=== PATIENT | female | born 1970 | race Caucasian/White ===

== ENCOUNTER 2016-05-29 21:59 | Emergency (ER) | payer OTHER ==
[~2016-05-29 21:59] MED LIST: ATORVASTATIN CA20 MG PO; METOPROLOL TART50 MG PO; OMEPRAZOLE20 M1 PO; SYMBICORT1 AE1 IN; WELLBUTRIN SR100 MG PO
--- NOTE | 2016-05-30 | ED ORDER SUMMARY ---
..... Patient: ROSALVA SANTIAGO OrderSheet [facility] VisitID: [id number] [address] [place] [address] 45y, F Registration Date/Time: 05/29/2016 ORDER SHEET Weight: 117.9 kg (stated) Allergies: Flagyl, Sulfa Antibiotics GENERAL ORDERS: Forearm Right Urgent (22:22 05/29/2016 DDean R.N. per protocol) (Ack 22:25 CHagerty ER Autocad Draftsman) (22:30 HBivens A.R.N.P.) (Cancelled: Other22:30 HBivens A.R.N.P.) Elbow 3 or 4V Right Urgent (22:30 05/29/2016 HBivens A.R.N.P.) (22:40 CHagerty ER Autocad Draftsman) MEDICATION ORDERS: IV FLUIDS: ORDER SHEET NOTES: [Electronically signed by Adam Salgado R.N. (00:12 05/30/2016)] [Electronically signed by Nazia Kumar.R.N.P. (13:41 06/07/2016)] [Electronically locked/signed by Adam Salgado R.N. (00:12 05/30/2016)]
--- NOTE | 2016-05-30 | ED ORDER SUMMARY ---
..... Patient: ROSALVA SANTIAGO OrderSheet [facility] VisitID: [id number] [address] [place] [address] 45y, F Registration Date/Time: 05/29/2016 ORDER SHEET Weight: 117.9 kg (stated) Allergies: Flagyl, Sulfa Antibiotics GENERAL ORDERS: Forearm Right Urgent (22:22 05/29/2016 DDean R.N. per protocol) (Ack 22:25 CHagerty ER Board Attendant) (22:30 HBivens A.R.N.P.) (Cancelled: Other22:30 HBivens A.R.N.P.) Elbow 3 or 4V Right Urgent (22:30 05/29/2016 HBivens A.R.N.P.) (22:40 CHagerty ER Board Attendant) MEDICATION ORDERS: IV FLUIDS: ORDER SHEET NOTES: [Electronically signed by Adam Salgado R.N. (00:12 05/30/2016)] [Electronically signed by Nazia Kumar.R.N.P. (13:41 06/07/2016)] [Electronically locked/signed by Adam Salgado R.N. (00:12 05/30/2016)]
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
--- NOTE | 2016-05-30 00:16 | DIAGNOSTIC IMAGING REPORT ---
PROCEDURE: XR ELBOW 3 OR 4 VIEWS - RIGHT INDICATION: TRAUMA/INJURY TECHNIQUE: Four views. COMPARISON: None. FINDINGS: There are mild arthritic changes of the right ulnar humeral joint. The rest of the osseous structures and joint spaces are normal. No evidence of an effusion. IMPRESSION: 1. Mild arthritic changes. 2. Otherwise negative right elbow.
--- NOTE | 2016-06-07 13:41 | ED MED RECONCILIATION SUMMARY ---
Patient: ROSALVA SANTIAGO Medication Reconciliation Report [facility] VisitID: [id number] [address] [place] [address] 45y, F Registration Date/Time: 05/29/2016 Weight: 117.9 kg Height/Length: 63 in. BMI: 46.1 ALLERGIES: Flagyl, Sulfa Antibiotics The patient's Home Medications are listed below: THE FOLLOWING MEDICATIONS NEED TO BE RECONCILED: Atorvastatin Calcium Oral 40 mg, daily Hydrochlorothiazide Oral 25 mg, daily Omeprazole Oral 20 mg, 2x a day Tylenol PM Extra Strength Oral, qhs The source(s) of the original Home Medication information: Not obtained. The following Medications were given to the patient in the Emergency Department: None. The following Medications were prescribed to the patient: Naproxen 500 mg tablets: take 1 orally every 12 hours as needed for pain. Dispense twenty (20). No refills. -- Nazia Kumar A.R.N.P.
--- NOTE | 2016-06-07 13:41 | ED DISCHARGE INSTRUCTIONS ---
Patient: ROSALVA SANTIAGO General Instructions [facility] VisitID: [id number] [place] [address] 45y, F Registration Date/Time: 05/29/2016 Single contusion to the right elbow.No hematoma or skin abrasion. INSTRUCTIONS Warnings: GENERAL WARNINGS: Return or contact your physician immediately if your condition worsens or changes unexpectedly, if not improving as expected, or if other problems arise. Specifically return if problem worsens. Prescription Medications: Naproxen 500 mg tablets: take 1 orally every 12 hours as needed for pain. Dispense twenty (20). No refills. Follow-up: Follow up with your doctor in about one week as needed. Call for an appointment. Summary of care provided to patient. Understanding of the discharge instructions verbalized by patient. ADDITIONAL INFORMATION Contusion,Soft Tissue You have a CONTUSION, which is a bruise with swelling and some bleeding under the skin. There are no broken bones. This injury takes a few days to a few weeks to heal. Home Care: 1) Keep the injured part elevated to reduce pain and swelling. This is especially important during the first 48 hours. 2) Make an ice pack (ice cubes in a plastic bag, wrapped in a towel) and apply for 20 minutes every 1-2 hours the first day. Continue this 3-4 times a day until the pain and swelling goes away. 3) You may use acetaminophen (Tylenol) or ibuprofen (Motrin, Advil) to control pain, unless another pain medicine was prescribed. [ NOTE : If you have chronic liver or kidney disease or ever had a stomach ulcer or GI bleeding, talk with your doctor before using these medicines.] Follow Up with your doctor or this facility if you are not improving within the next THREE days. [NOTE: If X-rays were taken, they will be reviewed by a radiologist. You will be notified of any new findings that may affect your care.] Get Prompt Medical Attention if any of the following occur: -- Pain or swelling increases -- Injured arm or leg becomes cold, blue, numb or tingly -- Redness, warmth or drainage from the skin Contusion, Elbow A contusion of your elbow causes local pain, swelling and sometimes bruising. There are no broken bones. This injury takes a few days to a few weeks to heal. A sling may be provided for comfort and arm support Home Care : Keep your arm elevated to reduce pain and swelling.This is most important during the first 48 hours after injury. Apply an ice pack (ice cubes in a plastic bag, wrapped in a towel) over the injured area for 20 minutes every 1-2 hours the first day. You should continue with ice packs 3-4 times a day for the next two days. Continue the use of ice packs for relief of pain and swelling as needed. You may use acetaminophen (Tylenol) or ibuprofen (Motrin, Advil) to control pain, unless another pain medicine was prescribed. [NOTE: If you have chronic liver or kidney disease or ever had a stomach ulcer or GI bleeding, talk with your doctor before using these medicines.] If a sling was provided, you may remove it to shower or bathe. Do not wear it for more than one week or it may cause joint stiffness. Follow Up with your doctor or as advised by our staff if you are not starting to improve within the nextthree days. Get Prompt Medical Attention if any of the following occur: Pain or swelling increases Redness, warmth or drainage Hand or fingers becomes cold, blue, numb or tingly Naproxen Sodium Oral tablet What is this medicine? NAPROXEN (na PROX en) is a non-steroidal anti-inflammatory drug (NSAID). It is used to reduce swelling and to treat pain. This medicine may be used for dental pain, headache, or painful monthly periods. It is also used for painful joint and muscular problems such as arthritis, tendinitis, bursitis, and gout. How should I use this medicine? Take this medicine by mouth with a glass of water. Follow the directions on the prescription label. Take it with food if your stomach gets upset. Try to not lie down for at least 10 minutes after you take it. Take your medicine at regular intervals. Do not take your medicine more often than directed. Long-term, continuous use may increase the risk of heart attack or stroke. A special MedGuide will be given to you by the pharmacist with each prescription and refill. Be sure to read this information carefully each time. Talk to your votator machine operator regarding the use of this medicine in children. Special care may be needed. What side effects may I notice from receiving this medicine? Side effects that you should report to your doctor or health child care coordinator as soon as possible: black or bloody stools, blood in the urine or vomit blurred vision chest pain difficulty breathing or wheezing nausea or vomiting severe stomach pain skin rash, skin redness, blistering or peeling skin, hives, or itching slurred speech or weakness on one side of the body swelling of eyelids, throat, lips unexplained weight gain or swelling unusually weak or tired yellowing of eyes or skin Side effects that usually do not require medical attention (report to your doctor or health child care coordinator if they continue or are bothersome): constipation headache heartburn What may interact with this medicine? alcohol aspirin cidofovir diuretics lithium methotrexate other drugs for inflammation like ketorolac or prednisone pemetrexed probenecid warfarin What if I miss a dose? If you miss a dose, take it as soon as you can. If it is almost time for your next dose, take only that dose. Do not take double or extra doses. Where should I keep my medicine? Keep out of the reach of children. Store at room temperature between 15 and 30 degrees C (59 and 86 degrees F). Keep container tightly closed. Throw away any unused medicine after the expiration date. What should I tell my health care provider before I take this medicine? They need to know if you have any of these conditions: asthma cigarette smoker drink more than 3 alcohol containing drinks a day heart disease or circulation problems such as heart failure or leg edema (fluid retention) high blood pressure kidney disease liver disease stomach bleeding or ulcers an unusual or allergic reaction to naproxen, aspirin, other NSAIDs, other medicines, foods, dyes, or preservatives or trying to get breast-feeding What should I watch for while using this medicine? Tell your doctor or health child care coordinator if your pain does not get better. Talk to your doctor before taking another medicine for pain. Do not treat yourself. This medicine does not prevent heart attack or stroke. In fact, this medicine may increase the chance of a heart attack or stroke. The chance may increase with longer use of this medicine and in people who have heart disease. If you take aspirin to prevent heart attack or stroke, talk with your doctor or health child care coordinator. Do not take other medicines that contain aspirin, ibuprofen, or naproxen with this medicine. Side effects such as stomach upset, nausea, or ulcers may be more likely to occur. Many medicines available without a prescription should not be taken with this medicine. This medicine can cause ulcers and bleeding in the stomach and intestines at any time during treatment. Do not smoke cigarettes or drink alcohol. These increase irritation to your stomach and can make it more susceptible to damage from this medicine. Ulcers and bleeding can happen without warning symptoms and can cause . You may get drowsy or dizzy. Do not drive, use machinery, or do anything that needs mental alertness until you know how this medicine affects you. Do not stand or sit up quickly, especially if you are an older patient. This reduces the risk of dizzy or fainting spells. This medicine can cause you to bleed more easily. Try to avoid damage to your teeth and gums when you brush or floss your teeth. You have been given the following additional information: Contusion, Soft Tissue Contusion, Elbow Naproxen Sodium Oral tablet (Electronically signed by Nazia Kumar A.R.N.P. 06/07/2016 13:41)
--- NOTE | 2016-06-07 13:41 | ED MAR SUMMARY ---
..... Medication Administration Record [facility] [address] [place], [place] [id number] Patient: ROSALVA SANTIAGO Visit ID: [id number] 45y, F Weight: 117.9 kg Height/Length: 63 in BMI: 46.1 ALLERGIES: Flagyl, Sulfa Antibiotics
--- NOTE | 2016-06-07 13:41 | ED MAR SUMMARY ---
..... Medication Administration Record [facility] [address] [place], [place] [id number] Patient: ROSALVA SANTIAGO Visit ID: [id number] 45y, F Weight: 117.9 kg Height/Length: 63 in BMI: 46.1 ALLERGIES: Flagyl, Sulfa Antibiotics
--- NOTE | 2016-06-07 13:41 | ED MED RECONCILIATION SUMMARY ---
Patient: ROSALVA SANTIAGO Medication Reconciliation Report [facility] VisitID: [id number] [address] [place] [address] 45y, F Registration Date/Time: 05/29/2016 Weight: 117.9 kg Height/Length: 63 in. BMI: 46.1 ALLERGIES: Flagyl, Sulfa Antibiotics The patient's Home Medications are listed below: THE FOLLOWING MEDICATIONS NEED TO BE RECONCILED: Atorvastatin Calcium Oral 40 mg, daily Hydrochlorothiazide Oral 25 mg, daily Omeprazole Oral 20 mg, 2x a day Tylenol PM Extra Strength Oral, qhs The source(s) of the original Home Medication information: Not obtained. The following Medications were given to the patient in the Emergency Department: None. The following Medications were prescribed to the patient: Naproxen 500 mg tablets: take 1 orally every 12 hours as needed for pain. Dispense twenty (20). No refills. -- Nazia Kumar A.R.N.P.
== END 2016-05-30 00:06 | disposition home or self-care (01) ==
LOC: ED SRH 21:59
DX: S50.01XA Contusion of right elbow, initial encounter (principal); W20.8XXA Other cause of strike by thrown, projected or falling object, initial encounter; Y93.89 Activity, other specified; Y92.009 Unspecified place in unspecified non-institutional (private) residence as the place of occurrence of the external cause; Y99.9 Unspecified external cause status; I10 Essential (primary) hypertension; J44.9 Chronic obstructive pulmonary disease, unspecified; K21.9 Gastro-esophageal reflux disease without esophagitis; F17.210 Nicotine dependence, cigarettes, uncomplicated

== ENCOUNTER 2016-07-26 21:10 | Emergency (ER) | payer OTHER ==
--- NOTE | 2016-07-26 22:39 | ED CLINICAL REPORT ---
Clinical Report - Physicians/Mid Levels [facility] [address] [place] [address] 07/26/2016 21:11 Patient: ROSALVA SANTIAGO Time Seen: 21:21; initial patient contact, initial documentation, patient care assumed. Arrived- By private vehicle. Historian- patient. HISTORY OF PRESENT ILLNESS Chief Complaint: VAGINAL DISCHARGE. This started about 4 days ago and still present. The symptoms are described as moderate. Modifying factors. Not worsened by anything. Not relieved by anything. The patient has had vaginal pain and vaginal itching. She has had a moderate amount of white, curd-like, malodorous, itchy, burning, painful vaginal discharge. No abdominal pain, pelvic pain, low back pain, flank pain or missed period(s). No irregular periods, abnormal bleeding, genital lesions, pain with urination or urinary frequency. No urgency of urination or hematuria. Sexually active- unprotected sex and heterosexual. No history of multiple sexual partners or exposure to sexually transmitted disease. Does not use control measures. (says she hasn't tried any otc meds because she has no money, and she thinks she has a yeast infection). Denies current . Similar symptoms previously: None. Recent medical care: Not recently seen/assessed. REVIEW OF SYSTEMS No vomiting, diarrhea, fever, difficulty breathing or chest pain. All systems otherwise negative, except as recorded above. PAST HISTORY See nurses notes. ( PROBLEMS: Contusion. Dehydration. Headache. COPD - Chronic Obstructive Pulmonary Disease. Insect Bite(s). Blisters on arms bilat . Bipolar Disorder. Tonsillitis. Allergic Reaction. Lung Disease. GI Disease. Otitis Media. Otitis Externa. Immunizations. Influenza. Hypertension. Chest Pain of GI Origin. URI. --: Petra Velez. ADDITIONAL SURGERIES: Carpal Tunnel Surgery. Cholecystectomy. Hysterectomy. Oophorectomy. Salpingectomy. --:22 Petra Velez.). SOCIAL HISTORY Former smoker. No alcohol use or drug use. No recent travel. Is a local resident. She lives with spouse. FAMILY HISTORY Negative. ADDITIONAL NOTES The nursing notes have been reviewed with agreement regarding the chief complaint, HPI, ROS, PMH and patient medications and allergies. PHYSICAL EXAM Vital Signs: 07/26/2016 21:25 BP: 138/87. HR: 102. RR: 18. O2 saturation: 94%. Temp: 98.3 F. Have been reviewed as normal and appear to be correct. Appearance: Alert. Oriented X3. No acute distress. HEENT: Normal external inspection. ENT: Pharynx normal. Neck: Neck supple. CVS: Heart sounds normal. Respiratory: No respiratory distress. Breath sounds normal. Chest nontender. Abdomen: Soft and nontender. Mildly obese. Back: Normal external inspection. : External inspection normal. Speculum exam abnormal. A scant amount of thick, curd-like, white and yellow vaginal discharge present. No vaginal bleeding. Cervical os closed. No cervicitis. No herpes-like lesions. Bimanual exam normal. No tissue present in the cervical os. Skin: Skin warm and dry. Normal skin color. No rash. Normal skin turgor. Extremities: Extremities nontender. No lower extremity edema. Neuro: Oriented X 3. Mood/affect normal. No motor deficit. No sensory deficit. LABS, X-RAYS, AND EKG Laboratory Tests: Wet Prep: (RADHA: 07/26/2016 21:51) ( MsgRcvd 07/26/2016 22:15) Final results SPECIMEN DESCRIPTION: SWAB Test Result Flag Units (Reference) WET MOUNT CLUE CELLS:: FEW * EPITHELIAL CELLS: MODERATE -- SOURCE?: VAGINAL WHITE BLOOD CELLS: 2+ TRICHOMONAS:: NONE -- YEAST:: NONE . PROGRESS AND PROCEDURES Course of Care: 21:31 07/26/16. pt has jose maria for #5 er visits, see report for full details. Patient counseled in person regarding the patient's stable condition, test results and diagnosis. 22:17. Differential Diagnosis: Other possible considerations: yeast, bv, std, pid. Above considerations are based on history, physical exam, reassessment and laboratory data. Differential diagnosis was discussed with patient. Disposition: Discharged home in good and unchanged condition (22:38). Condition: good and stable. CLINICAL IMPRESSION Acute mild bacterial vaginitis INSTRUCTIONS No sexual contact for one weeks until symptoms resolve. Warnings: GENERAL WARNINGS: Return or contact your physician immediately if your condition worsens or changes unexpectedly, if not improving as expected, or if other problems arise. Specifically return if problem worsens. Prescription Medications: Doxycycline 100 mg: Take 1 capsule orally every 12 hours for 10 days. No refill. Follow-up: Follow up with your doctor in about three days even if well. Call for an appointment. Summary of care provided to patient. Understanding of the discharge instructions verbalized by patient. (Electronically signed by Nazia Kumar A.R.N.P. 07/26/2016 22:47)
--- NOTE | 2016-07-26 22:39 | ED NURSING NOTES ---
Clinical Report - Nurses [facility] [address] [place] [address] 07/26/2016 21:11 Patient: ROSALVA SANTIAGO TRIAGE Triage time 21:Jul 26 2016. Acuity: LEVEL 4. Chief Complaint: VAGINAL DISCHARGE and VAGINAL ITCHING. 21:07/26/16. Alert. No acute distress. SEPSIS SCREEN: Sepsis Screen. Negative (no infection suspected/documented). JESUS COMA SCORE: Jesus Coma Scale: 15- eyes open spontaneously (4); best verbal response- oriented x 4 (5); best motor response- obeys commands (6). --21:25 Petra Velez 21:25 07/26/16. BP: 138/87. HR: 102. RR: 18. O2 saturation: 94%. Temp: 98.3 F. Pain level now 7/10. --21:25 Petra Velez. Weight: 117.9 kg stated. Height/Length: 63 inches Per Patient. BMI: 46.1. --21:24 Petra Velez. Medications Atorvastatin Calcium Oral 40 mg, daily. Hydrochlorothiazide Oral 25 mg, daily. Omeprazole Oral 20 mg, 2x a day. --21:21 Petra Velez Wellbutrin Oral 100 mg, daily. --21:21 Petra Velez Antidepressant. --21:22 Petra Velez. Medication/allergy information source: the patient. --21:25 Petra Velez. Allergies Flagyl.(hives, nausea, vomiting) Sulfa Antibiotics. --21:21 Petra Velez. History Arrived by private vehicle. Historian: patient. Accompanied by family. Primary physician (Eugene). Onset. (four days ago). ( Pt reports symptoms similar to past yeast infection. No recent antibiotic use. Pt reports itching, cottage cheese like drainage, and burning.). No abdominal pain, spotting, hematuria, abnormal bleeding or flank pain. No fever. Treatment BAKER CHEF: (antihistamine). PAST MEDICAL HX: No history of pelvic inflammatory disease or sexually transmitted disease. Immunizations: up-to-date. SOCIAL HX: Former smoker- 1 pack per day. No alcohol use or drug use. FALL RISK ASSESSMENT: Fall risk assessment completed. No fall risk identified. NUTRITIONAL RISK ASSESSMENT: The nutritional risk assessment revealed no deficiencies. FUNCTIONAL ASSESSMENT: Functional assessment: no impairments noted. LEARNING NEEDS ASSESSMENT: The learning needs assessment revealed no barriers. SKIN INTEGRITY ASSESSMENT: Skin integrity risk assessment completed. No skin integrity risk identified. --21:25 Petra Velez. PROBLEMS: Contusion. Dehydration. Headache. COPD - Chronic Obstructive Pulmonary Disease. Insect Bite(s). Blisters on arms bilat . Bipolar Disorder. Tonsillitis. Allergic Reaction. Lung Disease. GI Disease. Otitis Media. Otitis Externa. Immunizations. Influenza. Hypertension. Chest Pain of GI Origin. URI. --21: Petra Velez. ADDITIONAL SURGERIES: Carpal Tunnel Surgery. Cholecystectomy. Hysterectomy. Oophorectomy. Salpingectomy. --: Petra Velez. Assessment The patient states feels the same. --21:25 Petra Velez. Interventions ID band on patient. --21:25 Petra Velez. PHYSICAL ASSESSMENT :07/26/16. Ambulatory to room. Patient gowned. GENERAL / NEURO / PSYCH: Alert. Oriented X 4. Appears in no acute distress. HEENT: Mucous membranes are pink. RESPIRATORY: Respirations not labored. CVS: Capillary refill less than 2 seconds. GI / : Abdomen soft and nontender. Bowel sounds within normal limits. SKIN: Skin is warm and dry. --21:25 Petra Velez. NURSING PROGRESS NOTES 21:07/26/16. The plan of care for this patient has been created. Patient gowned. Head of bed elevated. Two patient identifiers checked. Call light placed in reach. Side rails up x 1. Bed placed in lowest position. Brakes of bed on. Patient ready for evaluation- chart flagged and ED physician and COLLAR TACKER notified. --: Petra Velez 22:07/26/16. Patient ready for evaluation- COLLAR TACKER notified (Procedure <15 minutes. GC and wet prep collected, patient ID checked with 2 identifiers, sent to lab). --22:16 Petra Velez. DISPOSITION / DISCHARGE 23:02 07/26/16. Departure time: 23:Jul 26 2016. Condition at departure: improved. The goals identified in the patient's plan of care were met. No learning barriers present. Discharge instructions provided and reviewed with the patient. Reviewed warnings (Patient verbalized awareness of warning s/sx listed in dc paperwork.). Reviewed medication(s) side effects, precautions, dosing and course information. Prescription(s) given to the patient (doxycicline). Treatments reviewed. Reviewed referral to a primary care physician for followup. Patient verbalized understanding. Written instructions provided in Hebrew. The patient was discharged by the nurse practitioner. She was discharged home and accompanied by family. She left the Emergency Department ambulatory and via private vehicle. Family member driving. FALL RISK ASSESSMENT: Fall risk assessment completed. No fall risk identified. --23:02 Petra Velez 23:00 07/26/16. BP: 129/78. HR: 88. RR: 15. O2 saturation: 94% on room air. Temp: 97.5 F. Pain level now: 0/10. --23:02 Petra Velez. Locked/Released at 07/26/2016 23:04 by Petra Velez,
--- NOTE | 2016-07-26 22:39 | ED ORDER SUMMARY ---
..... Patient: ROSALVA SANTIAGO OrderSheet [facility] VisitID: [id number] [place] [address] 45y, F Registration Date/Time: 07/26/2016 ORDER SHEET Weight: 117.9 kg (stated) Allergies: Flagyl, Sulfa Antibiotics GENERAL ORDERS: Pelvic Exam Setup (21:30 07/26/2016 HBivens A.R.N.P.) (21:44 [facility] GC/Chlamydia (Vaginal) (swab) Urgent (21:55 07/26/2016 AScuck verbal order read back to HBivens A.R.N.P.) (Ack 21:58 [facility]) (22:13 ASchmuck) Wet Prep (Vaginal) (swab) Urgent (21:56 07/26/2016 ASchmuck verbal order read back to HBivens A.R.N.P.) (Ack 21:58 [facility]) (22:13 ASchmuck) MEDICATION ORDERS: IV FLUIDS: ORDER SHEET NOTES: [Electronically signed by Nazia Kumar A.R.N.PAyo (22:47 07/26/2016)] [Electronically signed by Petra Velez (23:04 07/26/2016)] [Electronically locked/signed by Petra Velez (23:04 07/26/2016)]
--- NOTE | 2016-07-26 22:39 | ED NURSING NOTES ---
Clinical Report - Nurses [facility] [address] [place] [address] 07/26/2016 21:11 Patient: ROSALVA SANTIAGO TRIAGE Triage time 21:Jul 26 2016. Acuity: LEVEL 4. Chief Complaint: VAGINAL DISCHARGE and VAGINAL ITCHING. 21:07/26/16. Alert. No acute distress. SEPSIS SCREEN: Sepsis Screen. Negative (no infection suspected/documented). JESUS COMA SCORE: Jesus Coma Scale: 15- eyes open spontaneously (4); best verbal response- oriented x 4 (5); best motor response- obeys commands (6). --21:25 Petra Velez 21:25 07/26/16. BP: 138/87. HR: 102. RR: 18. O2 saturation: 94%. Temp: 98.3 F. Pain level now 7/10. --21:25 Petra Velez. Weight: 117.9 kg stated. Height/Length: 63 inches Per Patient. BMI: 46.1. --21:24 Petra Velez. Medications Atorvastatin Calcium Oral 40 mg, daily. Hydrochlorothiazide Oral 25 mg, daily. Omeprazole Oral 20 mg, 2x a day. --21:21 Petra Velez Wellbutrin Oral 100 mg, daily. --21:21 Petra Velez Antidepressant. --21:22 Petra Velez. Medication/allergy information source: the patient. --21:25 Petra Velez. Allergies Flagyl.(hives, nausea, vomiting) Sulfa Antibiotics. --21:21 Petra Velez. History Arrived by private vehicle. Historian: patient. Accompanied by family. Primary physician (Eugene). Onset. (four days ago). ( Pt reports symptoms similar to past yeast infection. No recent antibiotic use. Pt reports itching, cottage cheese like drainage, and burning.). No abdominal pain, spotting, hematuria, abnormal bleeding or flank pain. No fever. Treatment BINGO CASHIER: (antihistamine). PAST MEDICAL HX: No history of pelvic inflammatory disease or sexually transmitted disease. Immunizations: up-to-date. SOCIAL HX: Former smoker- 1 pack per day. No alcohol use or drug use. FALL RISK ASSESSMENT: Fall risk assessment completed. No fall risk identified. NUTRITIONAL RISK ASSESSMENT: The nutritional risk assessment revealed no deficiencies. FUNCTIONAL ASSESSMENT: Functional assessment: no impairments noted. LEARNING NEEDS ASSESSMENT: The learning needs assessment revealed no barriers. SKIN INTEGRITY ASSESSMENT: Skin integrity risk assessment completed. No skin integrity risk identified. --21:25 Petra Velez. PROBLEMS: Contusion. Dehydration. Headache. COPD - Chronic Obstructive Pulmonary Disease. Insect Bite(s). Blisters on arms bilat . Bipolar Disorder. Tonsillitis. Allergic Reaction. Lung Disease. GI Disease. Otitis Media. Otitis Externa. Immunizations. Influenza. Hypertension. Chest Pain of GI Origin. URI. --21: Petra Velez. ADDITIONAL SURGERIES: Carpal Tunnel Surgery. Cholecystectomy. Hysterectomy. Oophorectomy. Salpingectomy. --: Petra Velez. Assessment The patient states feels the same. --21:25 Petra Velez. Interventions ID band on patient. --21:25 Petra Velez. PHYSICAL ASSESSMENT :07/26/16. Ambulatory to room. Patient gowned. GENERAL / NEURO / PSYCH: Alert. Oriented X 4. Appears in no acute distress. HEENT: Mucous membranes are pink. RESPIRATORY: Respirations not labored. CVS: Capillary refill less than 2 seconds. GI / : Abdomen soft and nontender. Bowel sounds within normal limits. SKIN: Skin is warm and dry. --21:25 Petra Velez. NURSING PROGRESS NOTES 21:07/26/16. The plan of care for this patient has been created. Patient gowned. Head of bed elevated. Two patient identifiers checked. Call light placed in reach. Side rails up x 1. Bed placed in lowest position. Brakes of bed on. Patient ready for evaluation- chart flagged and ED physician and STILL OPERATOR notified. --: Petra Velez 22:07/26/16. Patient ready for evaluation- STILL OPERATOR notified (Procedure <15 minutes. GC and wet prep collected, patient ID checked with 2 identifiers, sent to lab). --22:16 Petra Velez. DISPOSITION / DISCHARGE 23:02 07/26/16. Departure time: 23:Jul 26 2016. Condition at departure: improved. The goals identified in the patient's plan of care were met. No learning barriers present. Discharge instructions provided and reviewed with the patient. Reviewed warnings (Patient verbalized awareness of warning s/sx listed in dc paperwork.). Reviewed medication(s) side effects, precautions, dosing and course information. Prescription(s) given to the patient (doxycicline). Treatments reviewed. Reviewed referral to a primary care physician for followup. Patient verbalized understanding. Written instructions provided in Belarusian. The patient was discharged by the nurse practitioner. She was discharged home and accompanied by family. She left the Emergency Department ambulatory and via private vehicle. Family member driving. FALL RISK ASSESSMENT: Fall risk assessment completed. No fall risk identified. --23:02 Petra Velez 23:00 07/26/16. BP: 129/78. HR: 88. RR: 15. O2 saturation: 94% on room air. Temp: 97.5 F. Pain level now: 0/10. --23:02 Petra Velez. Locked/Released at 07/26/2016 23:04 by Petra Velez,
--- NOTE | 2016-07-26 22:39 | ED ORDER SUMMARY ---
..... Patient: ROSALVA SANTIAGO OrderSheet [facility] VisitID: [id number] [place] [address] 45y, F Registration Date/Time: 07/26/2016 ORDER SHEET Weight: 117.9 kg (stated) Allergies: Flagyl, Sulfa Antibiotics GENERAL ORDERS: Pelvic Exam Setup (21:30 07/26/2016 HBivens A.R.N.P.) (21:44 [facility] GC/Chlamydia (Vaginal) (swab) Urgent (21:55 07/26/2016 AScuck verbal order read back to HBivens A.R.N.P.) (Ack 21:58 [employer] [facility] [employer]) (22:13 ASchmuck) Wet Prep (Vaginal) (swab) Urgent (21:56 07/26/2016 ASchmuck verbal order read back to HBivens A.R.N.P.) (Ack 21:58 [employer] [facility] [employer]ation [employer]) (22:13 ASchmuck) MEDICATION ORDERS: IV FLUIDS: ORDER SHEET NOTES: [Electronically signed by Nazia Kumar A.R.N.PAyo (22:47 07/26/2016)] [Electronically signed by Petra Velez (23:04 07/26/2016)] [Electronically locked/signed by Petra Velez (23:04 07/26/2016)]
--- NOTE | 2016-07-26 23:05 | ED MED RECONCILIATION SUMMARY ---
Patient: ROSALVA SANTIAGO Medication Reconciliation Report [facility] VisitID: [id number] [address] [place] [address] 45y, F Registration Date/Time: 07/26/2016 Weight: 117.9 kg Height/Length: 63 in. BMI: 46.1 ALLERGIES: Flagyl, Sulfa Antibiotics The patient's Home Medications are listed below: THE FOLLOWING MEDICATIONS NEED TO BE RECONCILED: Antidepressant Atorvastatin Calcium Oral 40 mg, daily Hydrochlorothiazide Oral 25 mg, daily Omeprazole Oral 20 mg, 2x a day Wellbutrin Oral 100 mg, daily The source(s) of the original Home Medication information: patient The following Medications were given to the patient in the Emergency Department: None. The following Medications were prescribed to the patient: Doxycycline 100 mg: Take 1 capsule orally every 12 hours for 10 days. No refill. -- Nazia Kumar A.R.N.P.
--- NOTE | 2016-07-26 23:05 | ED MAR SUMMARY ---
..... Medication Administration Record [facility] [address] [place], [place] [id number] Patient: ROSALVA SANTIAGO Visit ID: [id number] 45y, F Weight: 117.9 kg Height/Length: 63 in BMI: 46.1 ALLERGIES: Flagyl, Sulfa Antibiotics
--- NOTE | 2016-07-26 23:05 | ED MED RECONCILIATION SUMMARY ---
Patient: ROSALVA SANTIAGO Medication Reconciliation Report [facility] VisitID: [id number] [address] [place] [address] 45y, F Registration Date/Time: 07/26/2016 Weight: 117.9 kg Height/Length: 63 in. BMI: 46.1 ALLERGIES: Flagyl, Sulfa Antibiotics The patient's Home Medications are listed below: THE FOLLOWING MEDICATIONS NEED TO BE RECONCILED: Antidepressant Atorvastatin Calcium Oral 40 mg, daily Hydrochlorothiazide Oral 25 mg, daily Omeprazole Oral 20 mg, 2x a day Wellbutrin Oral 100 mg, daily The source(s) of the original Home Medication information: patient The following Medications were given to the patient in the Emergency Department: None. The following Medications were prescribed to the patient: Doxycycline 100 mg: Take 1 capsule orally every 12 hours for 10 days. No refill. -- Nazia Kumar A.R.N.P.
--- NOTE | 2016-07-26 23:05 | ED MAR SUMMARY ---
..... Medication Administration Record [facility] [address] [place], [place] [id number] Patient: ROSALVA SANTIAGO Visit ID: [id number] 45y, F Weight: 117.9 kg Height/Length: 63 in BMI: 46.1 ALLERGIES: Flagyl, Sulfa Antibiotics
--- NOTE | 2016-07-26 23:05 | ED DISCHARGE INSTRUCTIONS ---
Patient: ROSALVA SANTIAGO General Instructions [facility] VisitID: [id number] [place] [address] 45y, F Registration Date/Time: 07/26/2016 Acute mild bacterial vaginitis INSTRUCTIONS No sexual contact for one weeks until symptoms resolve. Warnings: GENERAL WARNINGS: Return or contact your physician immediately if your condition worsens or changes unexpectedly, if not improving as expected, or if other problems arise. Specifically return if problem worsens. Prescription Medications: Doxycycline 100 mg: Take 1 capsule orally every 12 hours for 10 days. No refill. Follow-up: Follow up with your doctor in about three days even if well. Call for an appointment. Summary of care provided to patient. Understanding of the discharge instructions verbalized by patient. ADDITIONAL INFORMATION Bacterial Vaginosis You have a bacterial infection of the vagina called bacterial vaginosis (BV). It may also be called gardnerella or non-specific vaginitis. BV occurs when the "bad" bacteria outnumber the "good" bacteria that are normally present in the vagina. Symptoms include foul-smelling vaginal discharge (most noticeable after vaginal intercourse). There may also be burning with urination. The burning is caused as the urine passes over the inflamed outer vaginal area. The cause of bacterial vaginosis is not certain. However, your risk is higher if you recently began a new sexual relationship, or have had many sex partners in the past. Your risk is also higher if you douche often. While bacterial vaginosis most often occurs only in sexually active women, this is not a true sexually transmitted disease. You did not get this from your partner. You cannot give it to your partner. The infection may be related to temporary changes in the pH of vaginal fluids after being exposed to semen. Home Care: Keep the genital area clean and free of discharge. Do this by wearing an absorbent sanitary pad and changing it often. Shower daily. When you shower, clean the outer vaginal area with plain soap and water. Do not douche during treatment unless advised to do so by your doctor. Routine douching after treatment is no longer recommended to clean the vagina. It raises your risk of vaginal infection and pelvic inflammatory disease. Avoid having sex until you have finished all antibiotic medicine and all symptoms have gone away. Wear cotton underwear or cotton-lined panty hose. Dont wear pants that are too tight. Limiting the number of sex partners you have lowers your risk of this and other vaginal infections, STDs, and HIV. Take all medicine as directed until it is gone, even if you are feeling better. If you dont do this, symptoms might return. Follow Up with your doctor if symptoms dont go away after the medicine is finished. Get Prompt Medical Attention if any of the following occur: Fever of 100.4F (38C) or higher, or as directed by your healthcare provider Lower abdominal pain Rash or joint pain Painful sores around the outer vaginal area or on your partners penis Doxycycline Monohydrate Oral tablet What is this medicine? DOXYCYCLINE (dox lis KENDAL olivier) is a tetracycline antibiotic. It kills certain bacteria or stops their growth. It is used to treat many kinds of infections, like dental, skin, respiratory, and urinary tract infections. It also treats acne, Lyme disease, malaria, and certain sexually transmitted infections. How should I use this medicine? Take this medicine by mouth with a full glass of water. Follow the directions on the prescription label. It is best to take this medicine without food, but if it upsets your stomach take it with food. Take your medicine at regular intervals. Do not take your medicine more often than directed. Take all of your medicine as directed even if you think you are better. Do not skip doses or stop your medicine early. Talk to your health sciences department chair regarding the use of this medicine in children. Special care may be needed. While this drug may be prescribed for children as young as 8 years old for selected conditions, precautions do apply. What side effects may I notice from receiving this medicine? Side effects that you should report to your doctor or health healthcare translator as soon as possible: allergic reactions like skin rash, itching or hives, swelling of the face, lips, or tongue difficulty breathing fever itching in the rectal or genital area pain on swallowing redness, blistering, peeling or loosening of the skin, including inside the mouth severe stomach pain or cramps unusual bleeding or bruising unusually weak or tired yellowing of the eyes or skin Side effects that usually do not require medical attention (report to your doctor or health healthcare translator if they continue or are bothersome): diarrhea loss of appetite nausea, vomiting What may interact with this medicine? antacids barbiturates control pills bismuth subsalicylate carbamazepine methoxyflurane other antibiotics phenytoin vitamins that contain iron warfarin What if I miss a dose? If you miss a dose, take it as soon as you can. If it is almost time for your next dose, take only that dose. Do not take double or extra doses. Where should I keep my medicine? Keep out of the reach of children. Store at room temperature, below 30 degrees C (86 degrees F). Protect from light. Keep container tightly closed. Throw away any unused medicine after the expiration date. Taking this medicine after the expiration date can make you seriously ill. What should I tell my health care provider before I take this medicine? They need to know if you have any of these conditions: liver disease long exposure to sunlight like working outdoors stomach problems like colitis an unusual or allergic reaction to doxycycline, tetracycline antibiotics, other medicines, foods, dyes, or preservatives or trying to get breast-feeding What should I watch for while using this medicine? Tell your doctor or health healthcare translator if your symptoms do not improve. Do not treat diarrhea with over the counter products. Contact your doctor if you have diarrhea that lasts more than 2 days or if it is severe and watery. Do not take this medicine just before going to bed. It may not dissolve properly when you lay down and can cause pain in your throat. Drink plenty of fluids while taking this medicine to also help reduce irritation in your throat. This medicine can make you more sensitive to the sun. Keep out of the sun. If you cannot avoid being in the sun, wear protective clothing and use sunscreen. Do not use sun lamps or tanning beds/booths. control pills may not work properly while you are taking this medicine. Talk to your doctor about using an extra method of control. If you are being treated for a sexually transmitted infection, avoid sexual contact until you have finished your treatment. Your sexual partner may also need treatment. Avoid antacids, aluminum, calcium, magnesium, and iron products for 4 hours before and 2 hours after taking a dose of this medicine. If you are using this medicine to prevent malaria, you should still protect yourself from contact with mosquitos. Stay in screened-in areas, use mosquito nets, keep your body covered, and use an insect repellent. You have been given the following additional information: Vaginitis, Bacterial Doxycycline Monohydrate Oral tablet (Electronically signed by Nazia Kumar A.R.N.P. 07/26/2016 22:47)
== END 2016-07-26 23:02 | disposition home or self-care (01) ==
LOC: ED SRH 21:10
DX: N76.0 Acute vaginitis (principal); B96.89 Other specified bacterial agents as the cause of diseases classified elsewhere; J44.9 Chronic obstructive pulmonary disease, unspecified; F31.9 Bipolar disorder, unspecified; I10 Essential (primary) hypertension; Z79.899 Other long term (current) drug therapy; Z87.891 Personal history of nicotine dependence; Z88.1 Allergy status to other antibiotic agents; Z88.2 Allergy status to sulfonamides
CPT/HCPCS: 90195; 91227; 91228

== ENCOUNTER 2016-09-04 19:42 | Emergency (ER) | payer OTHER ==
--- NOTE | 2016-09-04 22:14 | DIAGNOSTIC IMAGING REPORT ---
PROCEDURE: XR RIBS UNILAT W/PA CHEST-RT INDICATION: TRAUMA/INJURY TECHNIQUE: Three views of the right ribs with single PA view chest. COMPARISON: None. FINDINGS: RIGHT RIBS: There are no displaced rib fractures. There is, however the subtle contour deformity along the distal aspect of the ninth right rib near the costochondral junction. No suspicious rib lesions. CHEST: Normal cardiomediastinal contour. Clear lungs without pleural effusion, pneumothorax, or contusion. The other visible osseous structures are intact. IMPRESSION: 1. Questionable nondisplaced rib deformity of the right anterolateral ninth rib. 2. Normal chest without radiographic evidence of trauma.
--- NOTE | 2016-09-04 22:55 | ED ORDER SUMMARY ---
..... Patient: ROSALVA SANTIAGO OrderSheet [facility] VisitID: [id number] [address] [place] [address] 46y, F Registration Date/Time: 09/04/2016 ORDER SHEET Weight: 117.9 kg (stated) Allergies: Flagyl, Sulfa Antibiotics GENERAL ORDERS: Ribs Unilat w PA Chest Right Urgent (20:31 09/04/2016 HBivens A.R.N.P.) (20:50 RFay) MEDICATION ORDERS: Hydrocodone-APAP PO 5/325 mg (NOW, HIGH ALERT MEDICATION) (22:54 09/04/2016 HBivens A.R.N.P.) (23:00 Graciela R.N.) IV FLUIDS: ORDER SHEET NOTES: [Electronically signed by Nazia KumarRAyoN.PAyo (23:10 09/04/2016)] [Electronically signed by Sheriff Maria Antonia Kendrick (23:35 09/04/2016)] [Electronically locked/signed by Sheriff Maria Antonia Kendrick (23:35 09/04/2016)]
--- NOTE | 2016-09-04 22:55 | ED CLINICAL REPORT ---
Clinical Report - Physicians/Mid Levels [facility] [address] [place] [address] 09/04/2016 19:43 Patient: ROSALVA SANTIAGO Time Seen: 2016; initial patient contact, initial documentation, patient care assumed. Arrived- By private vehicle. Historian- patient. HISTORY OF PRESENT ILLNESS Chief Complaint: Injury to CHEST and ABDOMEN. Location of injuries- chest and abdomen. The injury occurred about 6 days ago. Fell while standing and landed on the ground and a hard surface; slipped (standing on edge of river, slipped, fell and landed on R side). (river). The patient complains of moderate pain. No blow to the head, neck pain, loss of consciousness or seizure. Not dazed. REVIEW OF SYSTEMS No numbness, weakness, loss of vision, difficulty breathing or laceration. She has had a headache and chest pain. All systems otherwise negative, except as recorded above. PAST HISTORY See nurses notes. PROBLEMS: Vaginitis. Contusion. Dehydration. Headache. COPD - Chronic Obstructive Pulmonary Disease. Insect Bite(s). Blisters on arms bilat . Bipolar Disorder. Tonsillitis. Allergic Reaction. Lung Disease. GI Disease. Otitis Media. Otitis Externa. Immunizations. LNMP - Last Normal Menstrual Period. Reflux. Influenza. Hypertension. Chest Pain of GI Origin. URI. --19:53 Sheriff Mireille RAyoN. Atypical Chest Pain [RuleOut]. Viral Disease [RuleOut]. --19:53 Sheriff Mireille R.Eva. ADDITIONAL SURGERIES: Carpal Tunnel Surgery. Cholecystectomy. Hysterectomy. Oophorectomy. Salpingectomy. --21:22 Petra Velez.). SOCIAL HISTORY Heavy tobacco smoker. No alcohol use or drug use. No recent travel. Is a local resident. FAMILY HISTORY No significant family medical history. ADDITIONAL NOTES The nursing notes have been reviewed with agreement regarding the chief complaint, HPI, ROS, PMH and patient medications and allergies. PHYSICAL EXAM Vital Signs: 09/04/2016 19:49 BP: 136/77. HR: 106. RR: 18. O2 saturation: 92%. Temp: 98.5 F. Pain level now: 09/22. Have been reviewed as abnormal and appear to be correct. Blood pressure normal. Tachycardic. Respiratory rate normal. Temperature normal. Oxygen saturation normal. Appearance: Alert. Oriented X3. No acute distress. Head: Head non-tender. No swelling of head. Eyes: Pupils equal, round and reactive to light. EOM intact. ENT: No dental injury. Pharynx normal. Neck: Painless ROM. Non-tender. CVS: Heart sounds normal. Pulses normal. Respiratory: Chest tender. Chest wall injury: mild tenderness located in the middle, right and anterior chest. No swelling. No laceration. No abrasion. No ecchymosis. No deformity. No injury to the costal cartilage, sternum, manubrium or xiphoid. No splinting present. No paradoxical movement. Breath sounds normal. Abdomen: No visible injury. Soft and nontender. Moderately obese. Back: No tenderness. ROM normal. Skin: Skin intact. Skin warm and dry. Normal skin color. Normal skin turgor. Extremities: Normal inspection. Pelvis stable. Extremities atraumatic. No lower extremity edema. Neuro: Oriented X 3. No motor deficit. No sensory deficit. LABS, X-RAYS, AND EKG X-Rays: Rib series. Sternum / Ribs X-rays: (IMPRESSION: 1. Questionable nondisplaced rib deformity of the right anterolateral ninth rib. 2. Normal chest without radiographic evidence of trauma. Electronically Final signed by:Carlyn Moya MD 09/04/2016 10:14:40 PM). PROGRESS AND PROCEDURES Course of Care: 20:31 09/04/16. pt has jose maria for #6 er visits, nothing alarming, see report for details. Patient counseled in person regarding the patient's stable condition, test results and diagnosis. Differential Diagnosis: Other possible considerations: fall, head injury, internal injury, fx, sprains, lacs, abrasions, contusions. Above considerations are based on history, physical exam, reassessment and X-Ray data. Differential diagnosis was discussed with patient. Disposition: Discharged home in good and improved condition (22:54). Condition: good and stable. CLINICAL IMPRESSION Single right rib fracture. Fall on same level by slipping. INSTRUCTIONS Warnings: GENERAL WARNINGS: Return or contact your physician immediately if your condition worsens or changes unexpectedly, if not improving as expected, or if other problems arise. worsening symptoms. Prescription Medications: [place] 5 mg / 325 mg tablets: take 1 to 2 orally every 6 hours as needed for pain. Dispense fifteen (15). No refills. Substitution is permissible. Motrin 800 mg tablets: take 1 tablet orally every 8 hours as needed for pain. Dispense thirty (30). No refills. Substitution is permissible. Follow-up: Follow up with your doctor in about five days even if well. Call for an appointment. Summary of care provided to patient. Understanding of the discharge instructions verbalized by patient. (Electronically signed by Nazia Kumar A.R.N.P. 09/04/2016 23:10)
--- NOTE | 2016-09-04 22:55 | ED NURSING NOTES ---
Clinical Report - Nurses [facility] [address] [place] [address] 09/04/2016 19:43 Patient: ROSALVA SANTIAGO TRIAGE Triage time 19:51. Chief Complaint: ABDOMINAL PAIN and NAUSEA. --19:54 Sheriff Kendrick R.N. 19:49 09/04/16. BP: 136/77. HR: 106. RR: 18. O2 saturation: 92%. Temp: 98.5 F. Pain level now: 09/22. --19:54 Sheriff Kendrick R.N. Weight: 117.9 kg stated. Height/Length: 63 inches Per Patient. BMI: 46.1. --19:50 Sheriff Kendrick R.N. Medications Antidepressant. Atorvastatin Calcium Oral 40 mg, daily. Hydrochlorothiazide Oral 25 mg, daily. Omeprazole Oral 20 mg, 2x a day. Wellbutrin Oral 100 mg, daily. --19:52 Sheriff Kendrick R.N. Allergies Flagyl.(hives, nausea, vomiting) Sulfa Antibiotics. --19:52 Sheriff Kendrick R.N. History Arrived by private vehicle. Historian: patient. Accompanied by family. ( Right ribs pain, fell at the river). PAST MEDICAL HX: Denies current . SURGERY HX: Right and left carpal tunnel surgery. Cholecystectomy. Had hysterectomy. SOCIAL HX: Heavy tobacco smoker- less than 1 pack per day. No alcohol use or drug use. FALL RISK ASSESSMENT: Fall risk assessment completed. No fall risk identified. NUTRITIONAL RISK ASSESSMENT: The nutritional risk assessment revealed no deficiencies. FUNCTIONAL ASSESSMENT: Functional assessment: no impairments noted. LEARNING NEEDS ASSESSMENT: The learning needs assessment revealed no barriers. SKIN INTEGRITY ASSESSMENT: Skin integrity risk assessment completed. No skin integrity risk identified. --19:54 Sheriff Kendrick R.N. PROBLEMS: Vaginitis. Contusion. Dehydration. Headache. COPD - Chronic Obstructive Pulmonary Disease. Insect Bite(s). Blisters on arms bilat . Bipolar Disorder. Tonsillitis. Allergic Reaction. Lung Disease. GI Disease. Otitis Media. Otitis Externa. Immunizations. LNMP - Last Normal Menstrual Period. Reflux. Influenza. Hypertension. Chest Pain of GI Origin. URI. --19:53 Sheriff Kendrick R.N. Atypical Chest Pain [RuleOut]. Viral Disease [RuleOut]. --19:53 Sheriff Kendrick R.N. ADDITIONAL SURGERIES: Oophorectomy. Salpingectomy. --20:19 Sheriff Kendrick R.N. PHYSICAL ASSESSMENT Ambulatory to room. Patient gowned. GENERAL / NEURO / PSYCH: Alert. Oriented X 4. Appears in no acute distress. HEENT: Mucous membranes are pink. RESPIRATORY: Respirations not labored. CVS: Capillary refill less than 2 seconds. GI / : Abdomen soft. SKIN: Skin is warm and dry. --19:54 Sheriff Kendrick R.N. NURSING PROGRESS NOTES Head of bed elevated. Two patient identifiers checked. Call light placed in reach. Side rails up x 2. Bed placed in lowest position. Brakes of bed on. --19:54 Sheriff Kendrick R.N. 23:00 09/04/2016 Hydrocodone-APAP (Hydrocodone-Acetaminophen) PO 5/325 mg Tablets 1 tab given. Allergies verified, confirmed 5 rights and sedative warning given to the patient. --23:00 Sheriff Kendrick R.N. DISPOSITION / DISCHARGE Condition at departure: stable. No learning barriers present. Discharge instructions provided and reviewed with the patient. Patient verbalized understanding. Written instructions provided in Luxem[place]ish. The patient was discharged by the nurse practitioner. She was discharged home and accompanied by family. She left the Emergency Department ambulatory and via private vehicle. Patient driving. --23:34 Sheriff Kendrick R.N. Locked/Released at 09/04/2016 23:35 by Sheriff Kendrick R.N.
--- NOTE | 2016-09-04 22:55 | ED ORDER SUMMARY ---
..... Patient: ROSALVA SANTIAGO OrderSheet [facility] VisitID: [id number] [address] [place] [address] 46y, F Registration Date/Time: 09/04/2016 ORDER SHEET Weight: 117.9 kg (stated) Allergies: Flagyl, Sulfa Antibiotics GENERAL ORDERS: Ribs Unilat w PA Chest Right Urgent (20:31 09/04/2016 HBivens A.R.N.P.) (20:50 RFay) MEDICATION ORDERS: Hydrocodone-APAP PO 5/325 mg (NOW, HIGH ALERT MEDICATION) (22:54 09/04/2016 HBivens A.R.N.P.) (23:00 Graciela R.N.) IV FLUIDS: ORDER SHEET NOTES: [Electronically signed by Nazia KumarRAyoN.PAyo (23:10 09/04/2016)] [Electronically signed by Sheriff Maria Antonia Kendrick (23:35 09/04/2016)] [Electronically locked/signed by Sheriff Maria Antonia Kendrick (23:35 09/04/2016)]
--- NOTE | 2016-09-04 23:35 | ED MED RECONCILIATION SUMMARY ---
Patient: ROSALVA SANTIAGO Medication Reconciliation Report [facility] VisitID: [id number] [address] [place] [address] 46y, F Registration Date/Time: 09/04/2016 Weight: 117.9 kg Height/Length: 63 in. BMI: 46.1 ALLERGIES: Flagyl, Sulfa Antibiotics The patient's Home Medications are listed below: THE FOLLOWING MEDICATIONS NEED TO BE RECONCILED: Antidepressant Atorvastatin Calcium Oral 40 mg, daily Hydrochlorothiazide Oral 25 mg, daily Omeprazole Oral 20 mg, 2x a day Wellbutrin Oral 100 mg, daily The source(s) of the original Home Medication information: Not obtained. The following Medications were given to the patient in the Emergency Department: Hydrocodone-APAP [PO] PO 1 tab, administered: 09/04/2016 11:00:00 PM The following Medications were prescribed to the patient: [place] 5 mg / 325 mg tablets: take 1 to 2 orally every 6 hours as needed for pain. Dispense fifteen (15). No refills. Substitution is permissible. -- Nazia Kumar A.R.N.P. Motrin 800 mg tablets: take 1 tablet orally every 8 hours as needed for pain. Dispense thirty (30). No refills. Substitution is permissible. -- Nazia Kumar A.R.N.P.
--- NOTE | 2016-09-04 23:35 | ED MAR SUMMARY ---
..... Medication Administration Record [facility] [address] [place] [address] Patient: ROSALVA SANTIAGO Visit ID: [id number] 46y, F Weight: 117.9 kg Height/Length: 63 in BMI: 46.1 ALLERGIES: Flagyl, Sulfa Antibiotics Given 23:00 09/04/2016 Sheriff Kendrick R.N. Medication Administered: HYDROCODONE-APAP [PO] (HYDROCODONE-ACETAMINOPHEN), Dose: 1 tab 5/325 mg Tablets PO. Medication Ordered: Hydrocodone-APAP PO 5/325 mg (NOW, HIGH ALERT MEDICATION).
--- NOTE | 2016-09-04 23:35 | ED MAR SUMMARY ---
..... Medication Administration Record [facility] [address] [place] [address] Patient: ROSALVA SANTIAGO Visit ID: [id number] 46y, F Weight: 117.9 kg Height/Length: 63 in BMI: 46.1 ALLERGIES: Flagyl, Sulfa Antibiotics Given 23:00 09/04/2016 Sheriff Kendrick R.N. Medication Administered: HYDROCODONE-APAP [PO] (HYDROCODONE-ACETAMINOPHEN), Dose: 1 tab 5/325 mg Tablets PO. Medication Ordered: Hydrocodone-APAP PO 5/325 mg (NOW, HIGH ALERT MEDICATION).
--- NOTE | 2016-09-04 23:35 | ED MED RECONCILIATION SUMMARY ---
Patient: ROSALVA SANTIAGO Medication Reconciliation Report [facility] VisitID: [id number] [address] [place] [address] 46y, F Registration Date/Time: 09/04/2016 Weight: 117.9 kg Height/Length: 63 in. BMI: 46.1 ALLERGIES: Flagyl, Sulfa Antibiotics The patient's Home Medications are listed below: THE FOLLOWING MEDICATIONS NEED TO BE RECONCILED: Antidepressant Atorvastatin Calcium Oral 40 mg, daily Hydrochlorothiazide Oral 25 mg, daily Omeprazole Oral 20 mg, 2x a day Wellbutrin Oral 100 mg, daily The source(s) of the original Home Medication information: Not obtained. The following Medications were given to the patient in the Emergency Department: Hydrocodone-APAP [PO] PO 1 tab, administered: 09/04/2016 11:00:00 PM The following Medications were prescribed to the patient: [place] 5 mg / 325 mg tablets: take 1 to 2 orally every 6 hours as needed for pain. Dispense fifteen (15). No refills. Substitution is permissible. -- Nazia Kumar A.R.N.P. Motrin 800 mg tablets: take 1 tablet orally every 8 hours as needed for pain. Dispense thirty (30). No refills. Substitution is permissible. -- Nazia Kumar A.R.N.P.
--- NOTE | 2016-09-04 23:35 | ED DISCHARGE INSTRUCTIONS ---
Patient: ROSALVA SANTIAGO General Instructions [facility] VisitID: [id number] [place] [address] 46y, F Registration Date/Time: 09/04/2016 Single right rib fracture. Fall on same level by slipping. INSTRUCTIONS Warnings: GENERAL WARNINGS: Return or contact your physician immediately if your condition worsens or changes unexpectedly, if not improving as expected, or if other problems arise. worsening symptoms. Prescription Medications: Bartlett 5 mg / 325 mg tablets: take 1 to 2 orally every 6 hours as needed for pain. Dispense fifteen (15). No refills. Substitution is permissible. Motrin 800 mg tablets: take 1 tablet orally every 8 hours as needed for pain. Dispense thirty (30). No refills. Substitution is permissible. Follow-up: Follow up with your doctor in about five days even if well. Call for an appointment. Summary of care provided to patient. Understanding of the discharge instructions verbalized by patient. ADDITIONAL INFORMATION Mechanical Fall You have had a fall today. It appears that the cause is mechanical. That means that you slipped, tripped or lost your balance. If your fall had been due to fainting or a seizure, further tests would be required. Home Care: Rest today and resume your normal activities when you are feeling back to normal. If you were injured during the fall, follow the advice from your doctor regarding care of your injury. You may use acetaminophen (Tylenol) or ibuprofen (Motrin, Advil) to control pain, unless another pain medicine was prescribed. [NOTE: If you have chronic liver or kidney disease or ever had a stomach ulcer or GI bleeding, talk with your doctor before using these medicines.] Fall Prevention: Was there anything that caused your fall that can be fixed, removed, or replaced? Make your home safe by keeping walkways clear of objects you may trip over. Use non-slip pads under rugs. Do not walk in poorly lit areas. Do not stand on chairs or wobbly ladders. Use caution when reaching overhead or looking upward. This position can cause a loss of balance. Be sure your shoes fit properly, have non-slip bottoms and are in good condition. Be cautious when going up and down curbs, and walking on uneven sidewalks. If your balance is poor, consider using a cane or walker. Stay as active as you can. Balance, flexibility, strength, and endurance all come from exercise. They all play a role in preventing falls. Follow Up with your doctor or as advised by our staff. Get Prompt Medical Attention if any of the following occur: Repeated mechanical falls, or unexplained falls Dizziness, fainting or seizure Severe headache Chest pain or shortness of breath Palpitations (very rapid or very slow or irregular heartbeat) Blood in vomit, stools (black or red color) Weakness of an arm or leg or one side of the face Difficulty with speech or vision Rib Fracture You have a fracture (break) of one or more ribs. Rib fractures do not require a cast like other bones. They will heal by themselves in about 4-6 weeks. The first 3-4 weeks will be the most painful because deep breathing, coughing or changing position from sitting to lying down, may cause the broken ends to move slightly. Home Care: Rest. You should not be doing any heavy lifting or strenuous exertion until the pain goes away. Because it hurts to breathe when you have a broken rib, there is risk of getting pneumonia from poor airflow through your lungs. To prevent this: Take four very deep breaths at least four times a day (exhale through pursed lips as if you are blowing up a balloon). If an "incentive spirometer" (breathing exercise device) was given to you, use it at least four times a day, or as directed. Apply an ice pack (ice cubes in a plastic bag, wrapped in a towel) over the injured area for 20 minutes every 1-2 hours the first day. Continue with ice packs 3-4 times a day for the next two days, then as needed for the relief of pain and swelling. You may use acetaminophen (Tylenol) or ibuprofen (Motrin, Advil) to control pain, unless another pain medicine was prescribed. [NOTE: If you have chronic liver or kidney disease or ever had a stomach ulcer or GI bleeding, talk with your doctor before using these medicines.] If your pain is not controlled by the treatment given, contact your doctor. Sometimes a stronger pain medicine may be needed. A nerve block (numbing the nerve between the ribs) can be performed in case of severe pain. Follow Up with your doctor during the next week, or as advised. Rarely, a broken rib will cause complications within the first few days that may not be evident during your initial exam (such as, collapsed lung, bleeding around the lung or into the abdomen, or pneumonia). Therefore, watch for the signs below. [NOTE: If x-rays were taken, they will be reviewed by a radiologist. You will be notified of any new findings that may affect your care.] Get Prompt Medical Attention if any of the following occur: Shortness of breath Increasing chest pain with breathing Dizziness, weakness or fainting New or worsening abdominal pain Fever of 100.4F (38C) or higher, or as directed by your healthcare provider Congested cough Hydrocodone Bitartrate, Acetaminophen Oral tablet What is this medicine? ACETAMINOPHEN; HYDROCODONE (a set a STARR vahe fen; dino droe KOE done) is a pain reliever. It is used to treat mild to moderate pain. How should I use this medicine? Take this medicine by mouth. Swallow it with a full glass of water. Follow the directions on the prescription label. If the medicine upsets your stomach, take the medicine with food or milk. Do not take more than you are told to take. Talk to your cisco administrator regarding the use of this medicine in children. This medicine is not approved for use in children. What side effects may I notice from receiving this medicine? Side effects that you should report to your doctor or health hospice home care coordinator as soon as possible: allergic reactions like skin rash, itching or hives, swelling of the face, lips, or tongue breathing problems confusion feeling faint or lightheaded, falls stomach pain yellowing of the eyes or skin Side effects that usually do not require medical attention (report to your doctor or health hospice home care coordinator if they continue or are bothersome): nausea, vomiting stomach upset What may interact with this medicine? alcohol antihistamines isoniazid medicines for depression, anxiety, or psychotic disturbances medicines for sleep muscle relaxants naltrexone narcotic medicines (opiates) for pain phenobarbital ritonavir tramadol What if I miss a dose? If you miss a dose, take it as soon as you can. If it is almost time for your next dose, take only that dose. Do not take double or extra doses. Where should I keep my medicine? Keep out of the reach of children. This medicine can be abused. Keep your medicine in a safe place to protect it from theft. Do not share this medicine with anyone. Selling or giving away this medicine is dangerous and against the law. Store at room temperature between 15 and 30 degrees C (59 and 86 degrees F). Protect from light. Keep container tightly closed. Throw away any unused medicine after the expiration date. Discard unused medicine and used packaging carefully. Pets and children can be harmed if they find used or lost packages. What should I tell my health care provider before I take this medicine? They need to know if you have any of these conditions: brain tumor Crohn's disease, inflammatory bowel disease, or ulcerative colitis drink more than 3 alcohol-containing drinks per day drug abuse or addiction head injury heart or circulation problems kidney disease or problems going to the bathroom liver disease lung disease, asthma, or breathing problems an unusual or allergic reaction to acetaminophen, hydrocodone, other opioid analgesics, other medicines, foods, dyes, or preservatives or trying to get breast-feeding What should I watch for while using this medicine? Tell your doctor or health hospice home care coordinator if your pain does not go away, if it gets worse, or if you have new or a different type of pain. You may develop tolerance to the medicine. Tolerance means that you will need a higher dose of the medicine for pain relief. Tolerance is normal and is expected if you take the medicine for a long time. Do not suddenly stop taking your medicine because you may develop a severe reaction. Your body becomes used to the medicine. This does NOT mean you are addicted. Addiction is a behavior related to getting and using a drug for a non-medical reason. If you have pain, you have a medical reason to take pain medicine. Your doctor will tell you how much medicine to take. If your doctor wants you to stop the medicine, the dose will be slowly lowered over time to avoid any side effects. You may get drowsy or dizzy when you first start taking the medicine or change doses. Do not drive, use machinery, or do anything that may be dangerous until you know how the medicine affects you. Stand or sit up slowly. There are different types of narcotic medicines (opiates) for pain. If you take more than one type at the same time, you may have more side effects. Give your health care provider a list of all medicines you use. Your doctor will tell you how much medicine to take. Do not take more medicine than directed. Call emergency for help if you have problems breathing. The medicine will cause constipation. Try to have a bowel movement at least every 2 to 3 days. If you do not have a bowel movement for 3 days, call your doctor or health hospice home care coordinator. Too much acetaminophen can be very dangerous. Do not take Tylenol (acetaminophen) or medicines that contain acetaminophen with this medicine. Many non-prescription medicines contain acetaminophen. Always read the labels carefully. Ibuprofen Oral tablet What is this medicine? IBUPROFEN (eye BYOO proe fen) is a non-steroidal anti-inflammatory drug (NSAID). It is used for dental pain, fever, headaches or migraines, osteoarthritis, rheumatoid arthritis, or painful monthly periods. It can also relieve minor aches and pains caused by a cold, flu, or sore throat. How should I use this medicine? Take this medicine by mouth with a glass of water. Follow the directions on the prescription label. Take this medicine with food if your stomach gets upset. Try to not lie down for at least 10 minutes after you take the medicine. Take your medicine at regular intervals. Do not take your medicine more often than directed. A special MedGuide will be given to you by the pharmacist with each prescription and refill. Be sure to read this information carefully each time. Talk to your cis[employer] administrator regarding the use of this medicine in children. Special care may be needed. What side effects may I notice from receiving this medicine? Side effects that you should report to your doctor or health hospice home care coordinator as soon as possible: allergic reactions like skin rash, itching or hives, swelling of the face, lips, or tongue black or bloody stools, blood in the urine or in vomit breathing problems changes in vision chest pain general ill feeling or flu-like symptoms nausea or vomiting redness, blistering, peeling or loosening of the skin, including inside the mouth slurred speech or weakness on one side of the body stomach pain unexplained weight gain or swelling unusually weak or tired yellowing of eyes or skin Side effects that usually do not require medical attention (report to your doctor or health hospice home care coordinator if they continue or are bothersome): constipation or diarrhea dizziness gas or heartburn stomach upset What may interact with this medicine? Do not take this medicine with any of the following medications: cidofovir ketorolac methotrexate pemetrexed This medicine may also interact with the following medications: alcohol aspirin diuretics lithium other drugs for inflammation like prednisone warfarin What if I miss a dose? If you miss a dose, take it as soon as you can. If it is almost time for your next dose, take only that dose. Do not take double or extra doses. Where should I keep my medicine? Keep out of the reach of children. Store at room temperature between 15 and 30 degrees C (59 and 86 degrees F). Keep container tightly closed. Throw away any unused medicine after the expiration date. What should I tell my health care provider before I take this medicine? They need to know if you have any of these conditions: asthma cigarette smoker drink more than 3 alcohol containing drinks a day heart disease or circulation problems such as heart failure or leg edema (fluid retention) high blood pressure kidney disease liver disease stomach bleeding or ulcers an unusual or allergic reaction to ibuprofen, aspirin, other NSAIDS, other medicines, foods, dyes, or preservatives or trying to get breast-feeding What should I watch for while using this medicine? Tell your doctor or healthcare professional if your symptoms do not start to get better or if they get worse. This medicine does not prevent heart attack or stroke. In fact, this medicine may increase the chance of a heart attack or stroke. The chance may increase with longer use of this medicine and in people who have heart disease. If you take aspirin to prevent heart attack or stroke, talk with your doctor or health hospice home care coordinator. Do not take other medicines that contain aspirin, ibuprofen, or naproxen with this medicine. Side effects such as stomach upset, nausea, or ulcers may be more likely to occur. Many medicines available without a prescription should not be taken with this medicine. This medicine can cause ulcers and bleeding in the stomach and intestines at any time during treatment. Ulcers and bleeding can happen without warning symptoms and can cause . To reduce your risk, do not smoke cigarettes or drink alcohol while you are taking this medicine. You may get drowsy or dizzy. Do not drive, use machinery, or do anything that needs mental alertness until you know how this medicine affects you. Do not stand or sit up quickly, especially if you are an older patient. This reduces the risk of dizzy or fainting spells. This medicine can cause you to bleed more easily. Try to avoid damage to your teeth and gums when you brush or floss your teeth. You have been given the following additional information: Fall, Mechanical Fracture, Rib Hydrocodone Bitartrate, Acetaminophen Oral tablet Ibuprofen Oral tablet (Electronically signed by Nazia Kumar A.R.N.P. 09/04/2016 23:10)
== END 2016-09-04 23:09 | disposition home or self-care (01) ==
LOC: ED SRH 19:42
DX: S22.31XA Fracture of one rib, right side, initial encounter for closed fracture (principal); W01.0XXA Fall on same level from slipping, tripping and stumbling without subsequent striking against object, initial encounter; Y93.9 Activity, unspecified; Y99.9 Unspecified external cause status; Y92.828 Other wilderness area as the place of occurrence of the external cause; J44.9 Chronic obstructive pulmonary disease, unspecified; I10 Essential (primary) hypertension; Z72.0 Tobacco use